=== PATIENT | male | born 1980 | race Caucasian/White ===

== ENCOUNTER 2021-01-18 19:57 | Emergency (ER) | payer MEDICAID ==
[2021-01-18] MEDS: Lidocaine 1% with EPINEPHrine 1:100,000 50 ML MDV INJECT ONE (20:39)
[2021-01-18] MEDS: Diphtheria,Pertussis(Acell),Tetanus Vaccine 0.5 ML SDV IM ONE (20:44)
--- NOTE | 2021-01-18 20:51 | EDM.PDOC ---
ED HPI GENERAL MEDICAL PROBLEM - General Chief Complaint: Laceration Stated Complaint: LACERATION Time Seen by Provider: 01/18/21 20:15 - History of Present Illness INITIAL COMMENTS - FREE TEXT/NARRATIVE: Pt comes in with a laceration to his left hand, across the heel of the hand. He slipped on some wet grass and fell, cutting his hand on something, maybe glass he thinks. He held pressure to the injury to help with bleeding. He has some tingling of the distal arm, but not distal to the wound. He is not current on his Tetanus. He has no other injuries. - Related Data Allergies Allergy/AdvReac Type Severity Reaction Status Date / Time Penicillins Allergy Itching Verified 01/18/21 20:19 Home Meds: Home Meds NK [No Known Home Meds] 01/18/21 [History] Past Medical History - Past Health History Medical/Surgical History: Denies Medical/Surgical History Social & Family History - Tobacco Use Years of Tobacco use: 20 Packs/Tins Daily: 1 - Recreational Drug Use Recreational Drug Use: No ED ROS GENERAL - Review of Systems Review Of Systems: Comprehensive ROS is negative, except as noted in HPI. Skin: Reports: Other (Laceration to left hand.) ED EXAM, SKIN/RASH Exam: See Below Extremities: Other (examining his left wrist and forearm reveals the radial pulse is strong. No sign of injury. He has full ROM of his hand, fingers, and wrist.) Skin: Other (examining pt's left hand reveals an angulated laceration across the center of the heel of his hand. Wound edges are rough and dirty. There is fat coming out of the wound.) ED SKIN PROCEDURES - Laceration/Wound Repair Left Hand Appearance: Other (Thru the epidermis and slightly into subq tissue.) Anesthetic Type: Local Local Anesthesia - Lidocaine (Xylocaine): 1% with EPI Local Anesthetic Volume: 4cc Skin Prep: Providone-Iodine (Betadine) Saline Irrigation (cc's): 100 Exploration/Debridement/Repair: Wound Explored, Explored to Base Closed with: Sutures Lac/Wound length In cm: 4 Suture Size: 4-0 # of Sutures: 9 Suture Type: Nylon Course - Vital Signs Last Recorded V/S: Last Vital Signs Temp 98 F 01/18/21 20:28 Pulse 99 01/18/21 20:28 Resp 20 01/18/21 20:28 BP 120/78 01/18/21 20:28 Pulse Ox 99 01/18/21 20:28 - Orders/Labs/Meds Orders: Active Orders 24 hr Category Date Time Status Vaccine to be Administered/Admin Charge [RC] ASDIRECTED Care 01/18/21 20:39 Active Meds: Medications Discontinued Medications Generic Name Dose Route Start Last Admin Trade Name Freq PRN Reason Stop Dose Admin Diphtheria/Tetanus/Acell Pertussis 0.5 ml 01/18/21 20:39 Diphtheria,Pertussis(Acell),Tetanus Vaccine 0.5 Ml Sdv IM 01/18/21 20:40 .ONCE ONE Departure - Departure Time of Disposition: 20:45 Disposition: Home, Self-Care 01 Clinical Impression: Laceration of hand, left Qualifiers: Encounter type: initial encounter Foreign body presence: without foreign body Qualified Code(s): S61.412A - Laceration without foreign body of left hand, initial encounter - Discharge Information *PRESCRIPTION DRUG MONITORING PROGRAM REVIEWED*: No *COPY OF PRESCRIPTION DRUG MONITORING REPORT IN PATIENT ERICA: No Referrals: PCP,None [Primary Care Provider] - Additional Instructions: Keep wound covered for 2 days, then as needed. Light duty activity for 2-3 days, increase as tolerated. Use Doxycycline 1 tab twice a day for 5 days. Monitor closely for infection. Tylenol or Motrin as needed. Suture removal in 10 days. Sepsis Event Note (ED) - Evaluation Sepsis Screening Result: No Definite Risk - Focused Exam Vital Signs: Vital Signs Temp Pulse Resp BP Pulse Ox 01/18/21 20:28 98 F 99 20 120/78 99 - My Orders Last 24 Hours: My Active Orders 01/18/21 20:39 Vaccine to be Administered/Admin Charge [RC] ASDIRECTED - Assessment/Plan Last 24 Hours: My Active Orders 01/18/21 20:39 Vaccine to be Administered/Admin Charge [RC] ASDIRECTED
[2021-01-18] MEDS ORDERED: Doxycycline 100 MG Cap ONE (21:00)
== END 2021-01-18 21:01 | disposition home or self-care (01) ==
LOC: LB.ED 19:57
DX: S61.412A Laceration without foreign body of left hand, initial encounter (principal); Z88.0 Allergy status to penicillin; Z72.0 Tobacco use; Z23 Encounter for immunization; W26.8XXA Contact with other sharp object(s), not elsewhere classified, initial encounter
CPT/HCPCS: 12002; 90471; 90715; 99282-25; A9270-GY

== ENCOUNTER 2021-03-11 20:35 | Emergency (ER) | payer MEDICAID ==
[2021-03-11] MEDS ORDERED: Cephalexin 500 MG Cap ONE (21:00)
--- NOTE | 2021-03-11 21:13 | EDM.PDOC ---
ED HPI GENERAL MEDICAL PROBLEM - General Chief Complaint: Skin Complaint Stated Complaint: HAND INFECTION Time Seen by Provider: 03/11/21 20:35 Source of Information: Reports: Patient History Limitations: Reports: No Limitations - History of Present Illness INITIAL COMMENTS - FREE TEXT/NARRATIVE: This patient presents to the emergency department for evaluation of a red streak on his arm. On January 18 of this year he fell and lacerated the palm of [place] hand [place]. He thought it had some glass on it and that is what he cut himself with. He was seen here and his wound was well cared for, he was given a tetanus shot and started on antibiotics prior to discharge. He states everything has healed very well and he was doing fine until this morning when he noticed some redness at the edge of the wound and now this evening it is extending along the medial aspect of his left lower arm and up into his bicep. He has some pain around the antecubital area over the lying the reddened area. Aside from that he denies pain. He has not had a fever. He states he has had no unusual symptoms or concerns including sore throat, cough, shortness of breath, malaise, change in appetite. He adds that about a week ago he did lacerate the tip of his left third digit while cleaning some fish. He washed the wound and did not pay much attention to it as it seemed to heal up well. He denies any other injuries to the hand. Left Arm Pain Score (Numeric/FACES): 1 - Related Data Allergies Allergy/AdvReac Type Severity Reaction Status Date / Time Penicillins Allergy Itching Verified 03/11/21 20:49 Home Meds: Home Meds NK [No Known Home Meds] 01/18/21 [History] Past Medical History - Past Health History Medical/Surgical History: Denies Medical/Surgical History Social & Family History - Family History Family Medical History: No Pertinent Family History - Tobacco Use Tobacco Use Status *Q: Current Every Day Tobacco User Years of Tobacco use: 12 Packs/Tins Daily: 1 - Caffeine Use Caffeine Use: Reports: Soda - Alcohol Use Days Per Week of Alcohol Use: 2 Number of Drinks Per Day: 2 Total Drinks Per Week: 4 - Recreational Drug Use Recreational Drug Use: No ED ROS GENERAL - Review of Systems Review Of Systems: Comprehensive ROS is negative, except as noted in HPI. ED EXAM, SKIN/RASH Exam: See Below Exam Limited By: No Limitations General Appearance: Alert, No Apparent Distress Eye Exam: Bilateral Eye: PERRL Ears: Normal External Exam Nose: Normal Inspection Head: Atraumatic, Normocephalic Neck: Normal Inspection, Full Range of Motion Respiratory/Chest: No Respiratory Distress, No Accessory Muscle Use Peripheral Pulses: 4+: Radial (L) Extremities: Other (Well-healed wound ending at the heel of his left hand. There is no redness around the wound itself. Erythematous line approximately 0.5 cm in width extending from the heel of his hand at the edge of the wound up the medial aspect of his lower arm, across the antecubital space, and up the upper arm). No: Increased Warmth (There is no swelling of his left arm. Distal CMS is intact) Neurological: Alert, Oriented Psychiatric: Normal Affect, Normal Mood Course - Vital Signs Last Recorded V/S: Last Vital Signs Temp 37.2 C 03/11/21 20:35 Pulse 83 03/11/21 20:35 Resp 16 03/11/21 20:35 BP 146/87 H 03/11/21 20:35 Pulse Ox 97 03/11/21 20:35 - Orders/Labs/Meds Orders: Active Orders 24 hr Category Date Time Status Hand Comp Min 3V Lt [CR] Stat Exams 03/11/21 20:47 Taken - Re-Assessments/Exams Free Text/Narrative Re-Assessment/Exam: 03/11/21 21:19 This patient presents to the emergency department for evaluation of a linear red streak on his arm. I was initially concerned there may have been a retained foreign body and obtained plain films which did not identify a radiopaque foreign body. It is possible he has a cellulitis related to a more recent injury that localized to the laceration. I did start him on cephalexin and will follow up with him by phone in 2 days to see how he is doing. He was instructed to return to the ER should he have any change in his condition including fever, increased pain in his arm, increased redness or swelling. The patient was stable at the time of discharge. Departure - Departure Time of Disposition: 21:20 Disposition: Home, Self-Care 01 Condition: Good Clinical Impression: Cellulitis - Discharge Information Instructions: Cellulitis, Adult, [id number] Forms: ED Department Discharge Additional Instructions: Discharge home. Segundoflex 500mg by mouth 1 tablet 3 times a day. Provider will call you Saturday to see how you are doing. If you get a fever or develop pain in the arm, call or came back to the ER. Sepsis Event Note (ED) - Evaluation Sepsis Screening Result: No Definite Risk - Focused Exam Vital Signs: Vital Signs Temp Pulse Resp BP Pulse Ox 03/11/21 20:35 37.2 C 83 16 146/87 H 97 - My Orders Last 24 Hours: My Active Orders 03/11/21 20:47 Hand Comp Min 3V Lt [CR] Stat - Assessment/Plan Last 24 Hours: My Active Orders 03/11/21 20:47 Hand Comp Min 3V Lt [CR] Stat
--- NOTE | 2021-03-12 14:13 | CR ---
DATE OF SERVICE: 03/11/21 CLINICAL DATA: r/o FB LEFT HAND: No priors. No acute fracture or dislocation. No lytic or blastic bone lesions. No radiodense foreign bodies. [id number] [facility]
--- NOTE | 2021-03-13 10:39 | PCM.SN.2 ---
- Free Text/Narrative Note: This patient was seen for a possible cellulitis of his arm. I did contact him by phone today and learned that all evidence of cellulitis has cleared. The red streak that was running up his arm is gone and he is feeling fine. He has no fever, no pain, other concerns or complaints. He was instructed to follow-up wi th his primary care provider as needed.
== END 2021-03-11 21:10 | disposition home or self-care (01) ==
LOC: LB.ED 20:35
DX: L03.114 Cellulitis of left upper limb (principal); S61.412A Laceration without foreign body of left hand, initial encounter; Z88.0 Allergy status to penicillin; Z72.0 Tobacco use; W25.XXXA Contact with sharp glass, initial encounter
CPT/HCPCS: 73130; 99283; A9270

== ENCOUNTER 2022-11-26 13:06 | Emergency (ER) | payer MEDICAID ==
[2022-11-26 13:41] LABS: BASOPHILS ABSOLUTE AUTO 0.02 K/uL (0.02-0.10); BASOPHILS PERCENT AUTO 0.2 % (0.0-0.5); EOSINOPHILS ABSOLUTE AUTO 0.07 K/uL (0.04-0.40); EOSINOPHILS PERCENT AUTO 0.6 % (1.0-5.0); HEMATOCRIT 44.1 % (40.0-54.0); HEMOGLOBIN 15.1 g/dL (13.0-18.0); LYMPHOCYTES ABSOLUTE AUTO 1.42 K/uL (1.50-4.00); LYMPHOCYTES PERCENT AUTO 11.8 % (20.0-40.0); MEAN CORPUSCULAR HEMOGLOBIN 31.3 pg (27.0-32.0); MEAN CORPUSCULAR HGB CONC 34.2 g/dL (31.0-35.0); MEAN CORPUSCULAR VOLUME 92 fL (76-96); MEAN PLATELET VOLUME 9.4 fL (6.0-10.0); MONOCYTES ABSOLUTE AUTO 0.61 K/uL (0.20-0.80); MONOCYTES PERCENT AUTO 5.1 % (3.0-10.0); NEUTROPHILS ABSOLUTE AUTO 9.87 K/uL (2.00-7.50); NEUTROPHILS PERCENT AUTO 82.3 % (45.0-70.0); PLATELET COUNT,PLT 286 K/uL (150-400); RED BLOOD CELL COUNT 4.82 M/uL (4.50-6.50); RED CELL DISTRIBUTION WIDTH 13.6 % (11.0-16.0)
[2022-11-26 14:02] LABS: A/G RATIO 1.2 (0.8-2.0); ALBUMIN 3.8 g/dL (3.4-5.0); BILIRUBIN TOTAL 1.1 mg/dL (0.0-1.0); BUN/CREATININE RATIO 9.1 (6-25); CALCIUM 9.1 mg/dL (8.5-10.1); CREATININE 1.1 mg/dL (0.70-1.30); EST CRCL DRUG DOSING (CG) 80.56 mL/min
[2022-11-26] MEDS ORDERED: methylPREDNISolone Sodium Succinate 125 MG/2 ML SDV IM ONE (15:29)
[2022-11-26] MEDS ORDERED: methylPREDNISolone Acetate 80 MG/ML SDV IM ONE (15:30)
[2022-11-26] MEDS ORDERED: methylPREDNISolone Sodium Succinate 125 MG/2 ML SDV ONE (15:33)
== END 2022-11-26 16:10 | disposition home or self-care (01) ==
LOC: LB.ED 13:06
DX: G51.0 Bell's palsy (principal); F17.210 Nicotine dependence, cigarettes, uncomplicated; Z88.0 Allergy status to penicillin
CPT/HCPCS: 36415; 70450; 80053; 85025; 96372; 99284; J1040; J2930